=== PATIENT | male | born 1995 | race Caucasian/White ===

== ENCOUNTER 2021-10-02 11:37 | Emergency (ER) | payer OTHER, BC ==
[2021-10-02 12:07] VITALS: BP 144/77; PULSE 77; RESP 18; TEMP 98
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
--- NOTE | 2021-10-02 13:58 | CT ---
EXAMINATION TYPE: CT brain wo con DATE OF EXAM: 10/02/2021 COMPARISON: None available HISTORY: Headache, Nausea CT DLP: 1092.4 mGycm Automated exposure control for dose reduction was used. TECHNIQUE: CT scan of the brain is performed without IV contrast administration. FINDINGS: No acute intracranial hemorrhage. No gross acute cortical infarct. No midline shift, herniation or ve ntriculomegaly. Unremarkable calabrese-white matter differentiation, basal cisterns, sella and CP angles. No gross space-o ccupying lesion, vasogenic edema or mass effect. Unremarkable orbits. Clear visualized paranasal sinuses and mastoid air cells. Unremarkable calvarial bones. IMPRESSION: No acute intracranial abnormality or gross space-occupying lesion by this nonenhanced CT scan.
== END 2021-10-02 14:20 | disposition home or self-care (01) ==
LOC: EC 11:37
DX: H69.90 Unspecified Eustachian tube disorder, unspecified ear (principal); R51.9 Headache, unspecified; F17.200 Nicotine dependence, unspecified, uncomplicated
CPT/HCPCS: 70450; 99284

== ENCOUNTER 2023-07-21 21:58 | Emergency (ER) | payer OTHER ==
--- NOTE | 2023-07-21 22:03 | ED ---
General Adult HPI - General Source: patient, RN notes reviewed Mode of arrival: ambulatory Limitations: no limitations <Jenifer Gamino - Last Filed: 07/21/23 23:09> <Batsheva Irene - Last Filed: 07/22/23 00:21> - General Chief complaint: Skin/Abscess/Foreign Body Stated complaint: foreign object swallowed Time Seen by Provider: 07/21/23 22:00 - History of Present Illness Initial comments: This is a 28-year-old male who presents to the emergency department for concerns of swallowing a piece of metal. States that he was cutting something at home, when a piece of metal broke off and he is concerned that he may have swallowed it. Denies any pain, but states that he is having a panic attack about it and would like to have an x-ray. (Jenifer Gamino) - Related Data Previous Rx's Medication Instructions Recorded Bacitracin/Polymyx Oint 1 applic TOPICAL BID 14 Days #1 gm 03/21/23 [Polysporin Oint] Diclofenac Sodium Gel [Voltaren 1% 4 gm TOPICAL QID 30 Days #1 gm 03/21/23 Gel] Divalproex ER [Depakote ER] 1,000 mg PO HS 30 Days #60 tab 03/21/23 Melatonin 10 mg PO HS 30 Days #30 tab 03/21/23 Nicotine 14Mg/24Hr Patch [Habitrol] 1 patch TRANSDERM DAILY 14 Days 03/21/23 #14 patch Paliperidone [Invega] 6 mg PO HS 30 Days #30 tab 03/21/23 hydrOXYzine pamoate [Vistaril] 50 mg PO BID PRN 14 Days #28 03/21/23 capsule LORazepam [Ativan] 1 mg PO TID 3 Days #9 tab 07/22/23 Allergies Allergy/AdvReac Type Severity Reaction Status Date / Time cyclobenzaprine Allergy Rash/Hives Verified 03/16/23 12:46 [From Flexeril] Review of Systems ROS Other: All systems not noted in ROS Statement are negative. <Jenifer Gamino - Last Filed: 07/21/23 23:09> ROS Other: All systems not noted in ROS Statement are negative. <Batsheva Irene - Last Filed: 07/22/23 00:21> ROS Statement: Those systems with pertinent positive or pertinent negative responses have been documented in the HPI. Past Medical History Additional Past Medical History / Comment(s): head injury History of Any Multi-Drug Resistant Organisms: None Reported Past Surgical History: No Surgical Hx Reported Smoking Status: Current every day smoker <Jenifer Gamino - Last Filed: 07/21/23 23:09> General Exam <Jenifer Gamino - Last Filed: 07/21/23 23:09> - General Exam Comments Initial Comments: Visual Physical Exam Vital signs reviewed General: Well-appearing, nontoxic, no acute distress. Head: Normocephalic, atraumatic Eyes: PERRLA, EOMI ENT: Airway patent Chest: Nonlabored breathing Skin: No visual rash, normal skin tone Neuro: Alert and oriented 3 Musculoskeletal: No gross abnormalities (Jenifer Gamino) Course Vital Signs 07/21/23 22:58 Temperature 97.4 F L Pulse Rate 89 Respiratory 20 Rate Blood Pressure 168/101 O2 Sat by Pulse 97 Oximetry Medical Decision Making <Jenifer Gamino - Last Filed: 07/21/23 23:09> - Medical Decision Making I performed the QuickNote portion of this chart. Signed Jenifer Gamino PA-C. (Jenifer Gamino) Disposition <Jenifer Gamino - Last Filed: 07/21/23 23:09> Is patient prescribed a controlled substance at d/c from ED?: No <Batsheva Irene - Last Filed: 07/22/23 00:21> Clinical Impression: Acute anxiety, Foreign body ingestion Disposition: HOME SELF-CARE Condition: Stable Instructions (If sedation given, give patient instructions): Generalized Anxiety Disorder (ED) Additional Instructions: Follow up with [facility] for your anxiety Referrals: None,Stated [Primary Care Provider] - 1-2 days
--- NOTE | 2023-07-21 22:44 | XR ---
EXAM: XR Abdomen, 1 View CLINICAL HISTORY: ITS.REASON XR Reason: Swallowed metal TECHNIQUE: Frontal supine view of the abdomen/pelvis. COMPARISON: No relevant prior studies available. FINDINGS: Gastrointestinal tract: Unremarkable. No dilation. Bones/joints: Unremarkable. No acute fracture. IMPRESSION: No radiopaque foreign body.
--- NOTE | 2023-07-21 22:44 | XR ---
EXAM: XR Chest, 1 View CLINICAL HISTORY: ITS.REASON XR Reason: Swallowed metal TECHNIQUE: Frontal view of the chest. COMPARISON: No relevant prior studies available. FINDINGS: Lungs: Unremarkable. No consolidation. Pleural space: Unremarkable. No pneumothorax. Heart: Unremarkable. No cardiomegaly. Mediastinum: Unremarkable. Normal mediastinal contour. Bones/joints: Unremarkable. No acute fracture. IMPRESSION: Normal chest x-ray.
[2023-07-21 23:04] VITALS: TEMP 97.4
[2023-07-22] MEDS: LORazepam 1 MG TAB PO STA ×2 (00:09→00:10)
[2023-07-22 00:30] VITALS: BP 150/100; PULSE 77; RESP 16
== END 2023-07-22 00:32 | disposition home or self-care (01) ==
LOC: EC 21:58
DX: T18.9XXA Foreign body of alimentary tract, part unspecified, initial encounter (principal); F41.9 Anxiety disorder, unspecified; F17.200 Nicotine dependence, unspecified, uncomplicated; W44.8XXA Other foreign body entering into or through a natural orifice, initial encounter; Y92.009 Unspecified place in unspecified non-institutional (private) residence as the place of occurrence of the external cause; Z88.8 Allergy status to other drugs, medicaments and biological substances
CPT/HCPCS: 71045; 74018; 99283

== ENCOUNTER → 2023-09-30 | Outpatient (CLI) | payer OTHER ==
--- NOTE | 2023-10-02 12:21 | MR ---
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 History of heroin addiction. COMPARISON: 10/02/2021 TECHNIQUE: Multi planar, multi sequence imaging was performed through the brain including: T1, T2, In version recovery, susceptibility weighted imaging and gradient echo imaging and Diffusion weighted im aging. The patient was then given intravenous contrast and multi planar, T1 fat-saturation images wer e obtained. IV Contrast: 8.5 cc Gadavist FINDINGS: The calabrese-white junctions, ventricular system, basal cisterns appear unremarkable. Diffusion-weighted imaging shows no evidence of restricted diffusion to suggest acute/subacute infarct. Intracranial ar terial flow voids are maintained. Midline structures show no abnormality. The susceptibility weighted images do not reveal any evidence for micro-hemorrhage. After administration of gadolinium, no abnor mal enhancement is seen. The bone marrow signal is within normal limits. Paranasal sinuses and mastoid air cells: No significant paranasal sinus disease. Visualized orbits: Orbital contents are intact. IMPRESSION: 1. No evidence of intracranial mass, acute/subacute infarct, or abnormal enhancement. 2. No significant atrophy changes. No significant white matter changes.
== END | disposition home or self-care (01) ==
LOC: RADMRIMAIN 17:00
PROVIDERS: ATTEND Psychiatry & Neurology Neurology
DX: G31.84 Mild cognitive impairment of uncertain or unknown etiology (principal); N13.30 Unspecified hydronephrosis
CPT/HCPCS: 70553; A9585

== ENCOUNTER → 2023-10-15 | Outpatient (CLI) | payer OTHER ==
[2023-10-15 15:06] LABS: Basophils # (A) 0.05 X 10*3/uL (0.00-0.10); Basophils % (A) 0.6 %; Eosinophils # (A) 0.06 X 10*3/uL (0.04-0.35); Eosinophils % (A) 0.7 %; HCT 48.8 % (39.6-50.0); HGB 16.8 g/dL (13.0-17.0); Lymphocytes # (A) 1.86 X 10*3/uL (0.90-5.00); Lymphocytes % (A) 22.4 %; MCH 29.8 pg (27.0-32.0); MCHC 34.4 g/dL (32.0-37.0); MCV 86.7 FL (80.0-97.0); Mean Platelet Volume 9.7 FL (9.5-12.2); Monocytes # (A) 0.67 X 10*3/uL (0.20-1.00); Monocytes % (A) 8.1 %; NRBC Per 100 WBC 0 X 10*3/uL (0.00-0.01); Neutrophils # (A) 5.64 X 10*3/uL (1.80-7.70); Neutrophils % (A) 67.8 %; Platelet Count 238 X 10*3/uL (140-440); RBC 5.63 X 10*6/uL (4.40-5.60); RDW 12.3 % (11.5-14.5); WBC 8.31 X 10*3/uL (4.50-10.00)
[2023-10-15 15:46] LABS: ALT 14 U/L (10-49); AST 12 U/L (14-35); Albumin/Globulin Ratio 1.92 Ratio (1.60-3.17); Alkaline Phosphatase 81 U/L (41-126); BUN/Creat Ratio 15.88 Ratio (12.00-20.00); Blood Urea Nitrogen 12.7 mg/dL (9.0-27.0); Calcium 10.1 mg/dL (8.7-10.3); Carbon Dioxide 28.9 mmol/L (21.6-31.8); Chloride 99 mmol/L (96-109); Globulin 2.6 g/dL (1.6-3.3); Glucose 89 mg/dL (70-110); Potassium 3.8 mmol/L (3.5-5.5); Sodium 140 mmol/L (135-145); Total Bilirubin 0.7 mg/dL (0.3-1.2); Total Protein 7.6 g/dL (6.2-8.2)
== END | disposition home or self-care (01) ==
LOC: LABWHC1 11:15
PROVIDERS: ATTEND Family Medicine
DX: F31.32 Bipolar disorder, current episode depressed, moderate (principal)
CPT/HCPCS: 36415; 80053; 82306; 82607; 83655; 84443; 85025

== ENCOUNTER 2024-07-08 01:37 | Emergency (ER) | payer OTHER ==
[2024-07-08 01:53] VITALS: RESP 18; TEMP 97.8
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
[2024-07-08] MEDS: SODIUM CHLORIDE 0.9% 1,000 ML IV STA (02:13)
[2024-07-08 02:54] LABS: Basophils % (A) 0 %; Eosinophils % (A) 0 %; HCT 45.4 % (39.0-53.0); HGB 15.9 gm/dL (13.0-17.5); Lymphocytes # (A) 1.1 k/uL (1.0-4.8); Lymphocytes % (A) 8 %; MCH 30.5 pg (25.0-35.0); MCHC 35.1 g/dL (31.0-37.0); Mean Platelet Volume 7.1; Monocytes # (A) 0.7 k/uL (0-1.0); Monocytes % (A) 5 %; Neutrophils # (A) 13.1 k/uL (1.3-7.7); Neutrophils % (A) 87 %; Platelet Count 224 k/uL (150-450); RBC 5.21 m/uL (4.30-5.90); RDW 11.9 % (11.5-15.5); WBC 15.1 k/uL (3.8-10.6)
[2024-07-08 03:07] LABS: ALT 16 U/L (4-49); AST 24 U/L (17-59); African American GFR (CKD) >90 (>60 ml/min/1.73 sqM); Albumin 4.7 g/dL (3.5-5.0); Alcohol <10 mg/dL; Alkaline Phosphatase 62 U/L (38-126); Anion Gap 11 mmol/L; Blood Urea Nitrogen 11 mg/dL (9-20); Calcium 9.8 mg/dL (8.4-10.2); Carbon Dioxide 28 mmol/L (22-30); Chloride 98 mmol/L (98-107); Creatine Kinase 238 U/L (55-170); Glucose 154 mg/dL (74-99); Non-African American GFR(CKD) >90 (>60 ml/min/1.73 sqM); Potassium 3.2 mmol/L (3.5-5.1); Sodium 137 mmol/L (137-145); Total Protein 7.5 g/dL (6.3-8.2)
[2024-07-08] MEDS: POTASSIUM CHLORIDE ER 20 MEQ TAB.ER PO STA (03:40)
[2024-07-08] MEDS: LORazepam 2 MG/ML INJ IV STA (04:16)
[2024-07-08] MEDS: LORazepam 1 MG TAB PO STA (04:23)
[2024-07-08 04:29] VITALS: BP 133/92; PULSE 80
== END 2024-07-08 05:02 | disposition home or self-care (01) ==
LOC: EC 01:37
DX: T42.4X1A Poisoning by benzodiazepines, accidental (unintentional), initial encounter (principal); F31.9 Bipolar disorder, unspecified; F17.200 Nicotine dependence, unspecified, uncomplicated; Z88.8 Allergy status to other drugs, medicaments and biological substances
CPT/HCPCS: 36415; 93005; 80053; 82550; 83605; 84484; 85025; 80320; 99284; 96374; 96361; J2060

== ENCOUNTER 2024-07-09 13:06 | Emergency (ER) | payer OTHER ==
--- NOTE | 2024-07-09 15:18 | ED ---
General Adult HPI - General Chief complaint: Recheck/Abnormal Lab/Rx Stated complaint: anxiety med refill Time Seen by Provider: 07/09/24 15:00 Source: patient, RN notes reviewed, old records reviewed Mode of arrival: ambulatory Limitations: no limitations - History of Present Illness Initial comments: This is a 29-year-old male who presents to the emergency department stating he has been going through a lot with his and is under a lot of stress. Patient states he was here recently and was given Ativan and he would like some more Ativan because he feels like he is going to need it. Patient states he only has 1 day left however he was seen yesterday and given a prescription for 9 pills yesterday and he states he does have some left but he was in the area so he thought he stop and get another refill. Patient denies any suicidal homicidal ideation. Patient denies any physical complaints today. - Related Data Previous Rx's Medication Instructions Recorded Bacitracin/Polymyx Oint 1 applic TOPICAL BID 14 Days #1 gm 03/21/23 [Polysporin Oint] Diclofenac Sodium Gel [Voltaren 1% 4 gm TOPICAL QID 30 Days #1 gm 03/21/23 Gel] Divalproex ER [Depakote ER] 1,000 mg PO HS 30 Days #60 tab 03/21/23 Melatonin 10 mg PO HS 30 Days #30 tab 03/21/23 Nicotine 14Mg/24Hr Patch [Habitrol] 1 patch TRANSDERM DAILY 14 Days 03/21/23 #14 patch Paliperidone [Invega] 6 mg PO HS 30 Days #30 tab 03/21/23 hydrOXYzine pamoate [Vistaril] 50 mg PO BID PRN 14 Days #28 03/21/23 capsule LORazepam [Ativan] 1 mg PO TID 3 Days #9 tab 07/22/23 LORazepam [Ativan] 1 mg PO TID PRN 3 Days #9 tab 07/08/24 Allergies Allergy/AdvReac Type Severity Reaction Status Date / Time cyclobenzaprine Allergy Rash/Hives Verified 07/09/24 13:44 [From Flexeril] Review of Systems ROS Statement: Those systems with pertinent positive or pertinent negative responses have been documented in the HPI. ROS Other: All systems not noted in ROS Statement are negative. Past Medical History Additional Past Medical History / Comment(s): head injury History of Any Multi-Drug Resistant Organisms: None Reported Past Surgical History: No Surgical Hx Reported Past Psychological History: Bipolar Smoking Status: Current every day smoker Past Drug Use History: Heroin, Marijuana General Exam - General Exam Comments Initial Comments: GENERAL: Patient is well-developed and well-nourished. Patient is nontoxic and well- hydrated and is in no acute distress. EYES: The sclera were anicteric. Extraocular movements were intact SKIN: Skin is clear with no lesions or rashes and otherwise unremarkable. NEUROLOGIC: Patient is alert and oriented x3. Cranial nerves II through XII are grossly intact. Normal speech, volume and content. Symmetrical smile. MUSCULOSKELETAL: Normal extremities with adequate strength and full range of motion. PSYCHIATRIC: Normal psychiatric evaluation. Patient states he is anxious but does not appear anxious in the room Limitations: no limitations Course Vital Signs 07/09/24 13:41 Temperature 98.0 F Pulse Rate 104 H Respiratory 22 Rate Blood Pressure 145/72 O2 Sat by Pulse 98 Oximetry Medical Decision Making - Medical Decision Making Was pt. sent in by a medical professional or institution ( PA, [employer] [facility], urgent care, hospital, or fpc...) When possible be specific @ -No Did you speak to anyone other than the patient for history (EMS, parent, family, police, friend...)? What history was obtained from this source @ -No Did you review nursing and triage notes (agree or disagree)? Why? @ -I reviewed and agree with nursing and triage notes Were old charts reviewed (outside hosp., previous admission, EMS record, old EKG, old radiological studies, urgent care reports/EKG's, fpc records)? Report findings @ -No old charts were reviewed Differential Diagnosis? @ -Differential Mental Health Depression, anxiety, bipolar, psychosis, schizophrenia, borderline personality, situational depression, adjustment disorder, behavioral disorder, brain tumor, malingering, substance abuse, encephalopathy, medication reaction, dementia, hypothyroidism, degenerative neurologic disorder, lupus.... This is not meant to be all-inclusive list EKG interpreted by me (3pts min.). @ -As above X-rays interpreted by me (1pt min.). @ -None done CT interpreted by me (1pt min.). @ -None done U/S interpreted by me (1pt. min.). @ -None done What testing was considered but not performed or refused? (CT, X-rays, U/S, labs)? Why? @ -None What meds were considered but not given or refused? Why? @ -None Did you discuss the management of the patient with other professionals ( professionals i.e. , PA, [employer], lab, RT, psych nurse, social media marketer, nutrition counselor, teacher, service officer, home health care case manager)? Give summary @ -No Was smoking cessation discussed for >3mins.? @ -No Was critical care preformed (if so, how long)? @ -No Were there social determinants of health that impacted care today? How? (Homelessness, low income, unemployed, alcoholism, drug addiction, transportation, low edu. Level, literacy, decrease access to med. care, nursing home, rehab)? @ -No Was there de-escalation of care discussed even if they declined (Discuss DNR or withdrawal of care, Hospice)? DNR status @ -No What co-morbidities impacted this encounter? (DM, HTN, Smoking, COPD, CAD, Cancer, CVA, ARF, Chemo, Hep., AIDS, mental health diagnosis, sleep apnea, morbid obesity)? @ -None Was patient admitted / discharged? Hospital course, mention meds given and route, prescriptions, significant lab abnormalities, going to OR and other pertinent info. @ -Patient will be given 1 Ativan in the emergency department. Patient will not be given a prescription for Ativan. Patient states that he does have medication left and only got a prescription yesterday so he is not going to get more medication at this point in time Undiagnosed new problem with uncertain prognosis? @ -No Drug Therapy requiring intensive monitoring for toxicity (Heparin, Nitro, Insulin, Cardizem)? @ -No Were any procedures done? @ -No Diagnosis/symptom? @ -Medication refill Acute, or Chronic, or Acute on Chronic? @ -Acute Uncomplicated (without systemic symptoms) or Complicated (systemic symptoms)? @ -Uncomplicated Side effects of treatment? @ -No Exacerbation, Progression, or Severe Exacerbation? @ -No Poses a threat to life or bodily function? How? (Chest pain, [place], [place], pneumonia, PE, COPD, DKA, ARF, appy, cholecystitis, CVA, Diverticulitis, Homicidal, Suicidal, threat to staff... and all critical care pts) @ -No Disposition Clinical Impression: Encounter for medication refill Disposition: HOME SELF-CARE Condition: Good Instructions (If sedation given, give patient instructions): Anxiety (ED) Is patient prescribed a controlled substance at d/c from ED?: No Referrals: None,Stated [Primary Care Provider] - 1-2 days Time of Disposition: 15:18
[2024-07-09] MEDS: LORazepam 1 MG TAB PO STA (15:20)
[2024-07-09 15:26] VITALS: RESP 20
[2024-07-09 15:31] VITALS: BP 137/74; PULSE 97; TEMP 98
== END 2024-07-09 15:44 | disposition home or self-care (01) ==
LOC: EC 13:06
DX: Z76.0 Encounter for issue of repeat prescription (principal); F17.200 Nicotine dependence, unspecified, uncomplicated; Z88.8 Allergy status to other drugs, medicaments and biological substances
CPT/HCPCS: 99281